=== PATIENT | male | born 1980 | race Caucasian/White ===

== ENCOUNTER 2016-11-05 16:01 | Emergency (ER) | payer OTHER ==
[2016-11-05 16:13] VITALS: RESP 20
[2016-11-05] MEDS ORDERED: Sodium Chloride 0.9% 1,000 ML IV ONE (16:23)
[2016-11-05] MEDS ORDERED: Sodium Chloride 0.9% 1,000 ML ONE (16:28)
[2016-11-05 16:40] LABS: BASO % 0.2 % (0.0-2.0); CHLORIDE 92 mmol/L (98-107); EOS % 0.4 % (0.0-4.0); HEMATOCRIT 45.9 % (35.0-51.0); LYMPH # 1.6 K/uL (1.0-4.3); LYMPH % 17.7 % (20.0-40.0); MEAN CELL VOLUME 87.6 fL (80.0-94.0); MEAN CORPUSCULAR HEMOGLOBIN 29.7 pg (27.0-31.0); MEAN PLATELET VOLUME 8.4 fL (7.2-11.7); MONO # 0.5 K/uL (0.0-0.8); MONO % 5.2 % (0.0-10.0); RED CELL DISTRIBUTION WIDTH 13.2 % (11.5-14.5); SODIUM 140 mmol/L (132-148); WHITE BLOOD COUNT 8.9 K/uL (4.8-10.8)
[2016-11-05 16:41] LABS: URINE BILIRUBIN NEGATIVE (NEGATIVE); URINE BLOOD 1+ (NEGATIVE); URINE COLOR Straw (YELLOW); URINE GLUCOSE (UA) NORMAL (Normal); URINE KETONE NEGATIVE (NEGATIVE); URINE LEUKOCYTE ESTERASE NEG Leu/uL (Negative); URINE PROTEIN NEGATIVE (NEGATIVE); URINE UROBILINOGEN NORMAL mg/dL (0.2-1.0); WBC URINE < 1 /hpf (0-5)
[2016-11-05 16:42] LABS: BILIRUBIN,TOTAL 0.5 mg/dL (0.2-1.3); GFR AFRICAN-AMERICAN > 60
[2016-11-05 16:43] LABS: ALB/GLOB RATIO 1.2 (1.0-2.1); ALKALINE PHOSPHATASE 89 U/L (38-126); ALT/SGPT 46 U/L (21-72); AST/SGOT 23 U/L (17-59); BLOOD UREA NITROGEN 10 mg/dL (9-20); CALCIUM 9.2 mg/dl (8.6-10.4); CARBON DIOXIDE 30 mmol/L (22-30); GLUCOSE,RANDOM 144 mg/dL (75-110); TOTAL PROTEIN 8.6 g/dL (6.3-8.3)
--- NOTE | 2016-11-05 16:46 | RAD ---
PROCEDURE: CHEST RADIOGRAPH, 1 VIEW HISTORY: epigastric pain COMPARISON: None available. FINDINGS: LUNGS: Clear. PLEURA: No pneumothorax or pleural fluid seen. CARDIOVASCULAR: Normal. OSSEOUS STRUCTURES: No significant abnormalities. VISUALIZED UPPER ABDOMEN: Normal. OTHER FINDINGS: None. IMPRESSION: No active disease.
[2016-11-05] MEDS ORDERED: Aluminum Hydroxide/Magnesium Hydroxide Susp (30 mL) PO STA (17:08)
[2016-11-05] MEDS ORDERED: Belladonna-Phenobarbital PO STA (17:09)
[2016-11-05] MEDS ORDERED: Aluminum Hydroxide/Magnesium Hydroxide Susp (30 mL) ONE (17:19)
[2016-11-05] MEDS ORDERED: Belladonna-Phenobarbital ONE (17:19)
[2016-11-05] MEDS ORDERED: Morphine 4 MG/ML VIAL ONE (18:02)
--- NOTE | 2016-11-05 18:09 | C.PDOC ---
History Of Present Illness 36 y/o male presents to the ED with complains of constant epigastric pain x3 days. Pain is nonradiating, not associated with nausea, vomiting, diarrhea, fever, chills, dysuria or any other complaints. Pt admits to history of gastritis, last endoscopy 2013. Pt recently saw GI, put on PPI; endoscopy scheduled in November. Time Seen by Provider: 11/05/16 16:10 Chief Complaint (Nursing): Abdominal Pain History Per: Patient History/Exam Limitations: no limitations Onset/Duration Of Symptoms: Days, Persistent Current Symptoms Are (Timing): Still Present Severity: Moderate Location Of Pain/Discomfort: Epigastric Radiation Of Pain To:: None Quality Of Discomfort: "Pain" Associated Symptoms: denies: Fever, Chills, Nausea, Vomiting, Diarrhea, Urinary Symptoms Exacerbating Factors: None Alleviating Factors: None Recent travel outside of the [place]: No Past Medical History Reviewed: Historical Data, Nursing Documentation, Vital Signs Vital Signs: Last Vital Signs Temp 98.5 F 11/05/16 17:59 Pulse 70 11/05/16 17:59 Resp 20 11/05/16 17:59 BP 130/7 L 11/05/16 17:59 Pulse Ox 98 11/05/16 18:15 - Medical History PMH: Gastritis Family History: States: Unknown Family Hx - Social History Hx Alcohol Use: Yes Hx Substance Use: No Review Of Systems Except As Marked, All Systems Reviewed And Found Negative. Constitutional: Negative for: Fever, Chills Cardiovascular: Negative for: Chest Pain Gastrointestinal: Positive for: Abdominal Pain. Negative for: Nausea, Vomiting , Diarrhea Genitourinary: Negative for: Dysuria Physical Exam - Physical Exam Appears: Non-toxic, In Acute Distress (mild) Skin: Warm, Dry, No Rash Head: Atraumatic, Normacephalic Neck: Normal ROM, Supple Chest: Symmetrical Cardiovascular: Rhythm Regular, No Murmur Respiratory: Normal Breath Sounds, No Rales, No Rhonchi, No Wheezing Gastrointestinal/Abdominal: Soft, Tenderness (epigastric), No Guarding, No Rebound, Other (negative Trevino's and McBurney's) Extremity: Bilateral: Atraumatic Neurological/Psych: Oriented x3 ED Course And Treatment - Laboratory Results Result Diagrams: 11/05/16 16:28 11/05/16 16:28 ECG: Interpreted By Me, Viewed By Me ECG Rhythm: Sinus Rhythm, R BBB Interpretation Of ECG: normal axis, no acute ST/T wave changes Rate From EC (BPM) O2 Sat by Pulse Oximetry: 98 (on room air) Pulse Ox Interpretation: Normal - Radiology CXR: Interpreted by Me, Viewed By Me CXR Interpretation: Yes: No Acute Disease - CT Scan/US RUQ US Other Rad Studies (CT/US): Read By Radiologist, Radiology Report Reviewed CT/US Interpretation: Name: MARVIN RAMOS Age: 36Years M Date: 2016. SSN: [id number] : 1980. Study: US ABDOMEN LTD Requesting Physician: ELISHA BROOKS. Images: 48. Add l Studies: Provided Clinical History: ruq/epigastric pain, r/o cholcystitis. CONFIDENTIALITY STATEMENT. This transmission is confidential and is intended to be a privileged communication. It is intended only for the use of the addressee. Access to this. message by anyone else is unauthorized. If you are not the intended recipient, any disclosure, copying, distribution or any action taken, or omitted to. be taken in reliance on it is prohibited and may be unlawful. If you received this communication in error, please notify us by telephone, so that return. of this document to us can be arranged. Page 1 of 2. EXAM: US Abdomen Limited, Right Upper Quadrant. CLINICAL HISTORY: 36 years old, male; Pain; Abdominal pain; Epigastric; Additional info: Ruq/ epigastric pain, R/O. cholcystitis. TECHNIQUE: Real-time ultrasound of the right upper quadrant with image documentation. EXAM DATE/TIME: 11/05/2016 5:54 PM. COMPARISON: No relevant prior studies available. FINDINGS: Gallbladder: Within normal limits in appearance, without evidence of gallstones, significant. gallbladder wall thickening, or pericholecystic fluid. Reportedly negative sonographic Trevino's sign. Common bile duct: Does not appear abnormally dilated, measuring less than 6 mm in diameter. Liver: Demonstrates mildly increased parenchymal echogenicity, most likely due to mild fatty. infiltration. Otherwise within normal limits in appearance. Measures 14.9 cm in length. Normal flow. seen in the main portal vein on color and Doppler imaging. Pancreas: Poorly seen due to gas. [facility]. [facility]. Final Radiology Report [id number]. Name: MARVIN RAMOS Age: 36Years M Date: 11/05/2016. SSN: [id number] : 1980. Study: US ABDOMEN LTD Requesting Physician: ELISHA BROOKS. Images: 48. Addl Studies: Provided Clinical History: ruq/ epigastric pain, r/o cholcystitis. CONFIDENTIALITY STATEMENT. This transmission is confidential and is intended to be a privileged communication. It is intended only for the use of the addressee. Access to this. message by anyone else is unauthorized. If you are not the intended recipient, any disclosure, copying, distribution or any action taken, or omitted to. be taken in reliance on it is prohibited and may be unlawful. If you received this communication in error, please notify us by telephone, so that return. of this document to us can be arranged. Page 2 of 2. Right kidney: Within normal limits in appearance. Measures 12.2 cm in length. No evidence of. hydronephrosis. Free fluid: None seen. IMPRESSION: Aside from mild fatty infiltration of the liver, no significant abnormality identified. No evidence of gallstones or cholecystitis. See above for remaining findings. Thank you for allowing us to participate in the care of your patient. Dictated and Authenticated by: Mendy Cummings MD. 11/05/2016 7:46 PM Eastern Time ([place] & [place]) Progress Note: Plan: fluids, pepcid, labs, EKG, CXR. On reevaluation, pt reports no improvement in pain. Ordered protonix, maalox, donnatol. Still no improvement, ordered US abd and morphine. Disposition Counseled Patient/Family Regarding: Studies Performed, Diagnosis, Need For Followup, Rx Given - Disposition Referrals: Remy Gore MD [Staff Provider] - [facility] [Outside] Disposition: HOME/ ROUTINE Disposition Time: 19:50 Condition: STABLE Additional Instructions: SEGUIMIENTO CON CORTEZ GASTROENTERLOGO DENTRO DE 1 SEMANA USE MEDICAMENTOS SEGN LO DIRIGIDO EVITE LOS ALIMENTOS ACIDICOS DEVUELVA A LA EFRAIN DE EMERGENCIA SI LOS SNTOMAS EMPEORARAN Prescriptions: Sucralfate [Carafate] 1 gm PO Q6 PRN #60 tablet PRN Reason: EPIGASTRIC PAIN Famotidine [Pepcid] 20 mg PO BID PRN #30 tab PRN Reason: abdominal Instructions: Epigastric Pain (ED) Print Language: NIGERIAN - POA Present On Arrival: None - Clinical Impression Clinical Impression: Epigastric abdominal pain - Scribe Statement The provider has reviewed the documentation as recorded by the Scrib[employer] [place] Provider Attestation: All medical record entries made by the Scribe were at my direction and personally dictated by me. I have reviewed the chart and agree that the record accurately reflects my personal performance of the history, physical exam, medical decision making, and the department course for this patient. I have also personally directed, reviewed, and agree with the discharge instructions and disposition.
--- NOTE | 2016-11-05 19:46 | US ---
EXAM: US Abdomen Limited, Right Upper Quadrant. CLINICAL HISTORY: 36 years old, male; Pain; Abdominal pain; Epigastric; Additional info: Ruq/epigastric pain, R/O cholcystitis TECHNIQUE: Real-time ultrasound of the right upper quadrant with image documentation. EXAM DATE/TIME: 11/05/2016 5:54 PM COMPARISON: No relevant prior studies available. FINDINGS: Gallbladder: Within normal limits in appearance, without evidence of gallstones, significant gallbladder wall thickening, or pericholecystic fluid. Reportedly negative sonographic Trevino's sign. Common bile duct: Does not appear abnormally dilated, measuring less than 6 mm in diameter. Liver: Demonstrates mildly increased parenchymal echogenicity, most likely due to mild fatty infiltration. Otherwise within normal limits in appearance. Measures 14.9 cm in length. Normal flow seen in the main portal vein on color and Doppler imaging. Pancreas: Poorly seen due to gas. Right kidney: Within normal limits in appearance. Measures 12.2 cm in length. No evidence of hydronephrosis. Free fluid: None seen. IMPRESSION: Aside from mild fatty infiltration of the liver, no significant abnormality identified. No evidence of gallstones or cholecystitis. See above for remaining findings.
[2016-11-05 20:24] VITALS: BP 144/70; PULSE 88; TEMP 97.8; O2SAT 99
--- NOTE | 2016-11-08 09:15 | CARD ---
APPROVED REPORT EKG Measurement Heart [id number] <Conclusion> Normal sinus rhythm Incomplete right bundle branch block Borderline ECG
== END 2016-11-05 20:24 | disposition home or self-care (01) ==
LOC: C.ER 16:01
DX: R10.13 Epigastric pain (principal)